=== PATIENT | female | born 1945 | race Caucasian/White ===

== ENCOUNTER → 2018-11-02 13:54 | Outpatient (CLI) | payer MEDICARE, SELFPAY ==
--- NOTE | 2018-11-02 | DI.CT.S_ITS ---
PROCEDURE: CT CHEST WO CON INDICATIONS: PULMONARY NODULE FOLLOW UP TECHNIQUE: Noncontrast 2.0-2.5 mm thick sections acquired from the pulmonary apices to the posterior costophrenic angles. 7 mm thick coronal and sagittal MIP reformats were then acquired. A low radiation dose technique was utilized. COMPARISON: [facility], CT, PE STUDY (CTA CHEST), 02/16/2018, 13:32. FINDINGS: Image quality: Diagnostic, given the low radiation dose technique. Lungs and pleura: There is severe centrilobular emphysema with an apical predominance. The tree in bud pulmonary radiopacity is visualized within the right lower lobe on the study dated 02/16/18 has resolved. A 3 mm in diameter pulmonary nodule is visualized at the right lung base which appears slightly smaller and more dense than on the prior study. No new pulmonary nodules. No pleural effusion or pneumothorax. No acute airspace opacities. Mediastinum: Heart size is normal. No pericardial effusion. No mediastinal adenopathy by size criteria. Thoracic aorta and central pulmonary arteries are normal in size. Scattered atheromatous calcifications are present within the aortic arch. Esophagus is normal in caliber. No hiatal hernia. Bones and chest wall: No suspicious bony lesions. No vertebral body compression fractures. No axillary or supraclavicular adenopathy by size criteria. Thyroid gland is unremarkable. Abdomen: Visualized upper abdomen solid organs and bowel loops appear normal in the absence of contrast. IMPRESSION: 1. Resolution of the right basilar air space opacities when compared with the study dated 02/16/18. No further followup recommended. 2. 3 mm right middle lobe pulmonary nodule. In a high risk patient, consider optional twelve-month followup. In a low risk patient, no further followup is needed. Please see guidelines below. Fleischner Society criteria for SOLID lung nodule followup. Nodule size (mm)Low-risk patientHigh-risk patient<6 (single or multiple)No routine followup.Optional CT at 12 months. 6-8 (single or multiple)CT at 6-12 months, then optional CT at 18-24 mo.CT at 6-12 months, then CT at 18-24 months. >8 (single)CT at 3 months, PET-CT, or biopsy. Same as for low-risk pts. >8 (multiple)CT at 3-6 months, then optional CT at 18-24 mo.CT at 3-6 months, then CT at 18-24 months. Fleischner Society criteria for SUB-SOLID lung nodule followup. Solitary pure ground-glass nodules<6 mm (ground glass or part solid)No followup needed. 6 mm or larger (ground glass)CT at 6-12 months to confirm persistence, then CT every 2 years until 5 years.6 mm or larger (part solid)CT at 3-6 months to confirm persistence, then annual CT until 5 years if unchanged and solid component remains <6 mm. Multiple sub-solid nodules<6 mmCT at 3-6 months, then CT consider at 2 & 4 years for high risk patients. [address] at 3-6 months. Subsequent management based on most suspicious lesions. Recommendations do not apply to lung cancer screening, patients with immunosuppression, or patients with known primary cancer. Dictated by: Marley Membreno M.D. on 11/02/2018 at 14:50 Approved by: Marley Membreno M.D. on 11/02/2018 at 15:00
== END ==
PROVIDERS: PCP Family Medicine; Visit Provider Family Medicine
DX: R91.1 Solitary pulmonary nodule (principal); J43.2 Centrilobular emphysema; I70.0 Atherosclerosis of aorta
CPT/HCPCS: 71250